=== PATIENT | male | born 1945 | race Two or more races ===

== ENCOUNTER 2017-06-25 08:36 | Day surgery (SDC) | payer MEDICARE, BC ==
[~2017-06-25] VITALS: Ht 167.6 cm; Wt 77.1 kg
--- NOTE | 2017-06-25 09:39 | NUR ---
[employer] PIPE MANUFACTURING SUPERVISOR OPENING NOTES PT ARRIVED TO UNIT IN STABLE CONDITION ACCOMPANIED BY HIS DAUGHTER. ORDERS NOTED BY DR. PINEDA. WILL INPUT STAT EKG ORDER, GET CONSENTS, AND PREPARE HIM FOR HIS PROCEDURES
--- NOTE | 2017-06-25 09:53 | NUR ---
SHIRT FINISHER NOTES PT TAKEN DOWN TO OR ACCOMPANIED BY OR STAFF.
--- NOTE | 2017-06-25 11:40 | NUR ---
EMPLOYMENT SERVICE SPECIALIST NOTES PT BACK FROM EGD AND COLONOSCOPY. ORDERS NOTED FROM DR. LIVINGSTON. WILL INPUT ORDERS AND BEGIN DISCHARGE ONCE PT IS STABLE.
[2017-06-25] MEDS ORDERED: IV LR 1000 ML 1,000 ML IV SCH (12:00)
--- NOTE | 2017-06-25 12:26 | NUR ---
SAMIRA NAJERA NOTES MRSA SWAB DONE ON RIGHT NARES. ALB CALLED FOR JUNIOR LINUX SYSTEMS ADMINISTRATOR Addendum: 06/25/17 at 1323 by MYRON EDDY RN *LAB
--- NOTE | 2017-06-25 13:23 | NUR ---
IMMIGRATION INSPECTORACCOUNTANT PROPERTY NOTES PT WAS DISCHARGED FROM UNIT IN STABLE CONDITION. VITAL SIGNS WNL. ALL NEEDS WERE MET DURING SHIFT AND ORDERS CARRIED OUT ACCORDINGLY. PT REMINDED TO FOLLOW UP WITH DR. LIVINGSTON IN 1 WEEK FOR RESULTS. ALL DISCHARGE INSTRUCTIONS DISCUSSED IN FULL CONTEXT WITH PT AND HIS DAUGHTER. PT VERBALIZED UNDERSTANDING OF DISCHARGE INSTRUCTIONS AND SIGNED ALL DISCHARGE PAPERWORK. ALL BELONGINGS WERE TAKEN BY THE PT. PT WAS ESCORTED OUT OF HOSPITAL AND LEFT VIA PRIVATE VEHICLE DRIVEN BY HIS DAUGHTER,.
== END 2017-06-25 22:59 | disposition home or self-care (01) ==
LOC: DS 08:36 → MED 08:38 → UNDOADMIN 08:38 → UNDODISIN 11:50 → DS 22:59
PROVIDERS: ATTEND Surgery
DX: D12.2 Benign neoplasm of ascending colon (principal); K63.5 Polyp of colon; K57.30 Diverticulosis of large intestine without perforation or abscess without bleeding; K29.50 Unspecified chronic gastritis without bleeding; K21.9 Gastro-esophageal reflux disease without esophagitis; K44.9 Diaphragmatic hernia without obstruction or gangrene; D64.9 Anemia, unspecified; E11.9 Type 2 diabetes mellitus without complications; J45.909 Unspecified asthma, uncomplicated; Z85.6 Personal history of leukemia; Z87.891 Personal history of nicotine dependence
CPT/HCPCS: 43239; 45385; 87081; 88305 ×2; 88313; 88342; 93005; J2704; J3490; J7120; Z7610

== ENCOUNTER 2017-07-04 19:24 | Inpatient (IN) | payer MEDICARE, BC ==
[~2017-07-04] VITALS: Ht 170.2 cm; Wt 86.2 kg
--- NOTE | 2017-07-04 19:30 | NUR ---
TO BED 4 AMBULATORY C/O NAUSEA ALL WEEK PER PT REPORT. PT AAOX4 NO ACUTE DISTRESS NOTED, RESP EVEN AND UNLABORED. PLACE PT ON CARDIAC MONITORING, CONTINUOUS POX. PENDING ER MD STUBBS.
--- NOTE | 2017-07-04 19:35 | NUR ---
PERLITA MERA AT BEDSIDE TO EVELYNE PARRA.
[2017-07-04] MEDS ORDERED: FAMOTIDINE/PF INJ 20 MG/2 ML VIAL IV ONE ×2 (19:50→20:00)
[2017-07-04] MEDS ORDERED: ONDANSETRON HCL/PF 4 MG/2 ML VIAL ONE (19:50)
--- NOTE | 2017-07-04 19:50 | NUR ---
RN AT BEDSIDE TO MEDICATE PT.
[2017-07-04] MEDS ORDERED: ONDANSETRON HCL/PF 4 MG/2 ML VIAL IVP ONE (20:00)
--- NOTE | 2017-07-04 20:08 | NUR ---
PT BACK FROM RADIOLOGY. PENDING CT ABD/PELVIS RESULT.
[2017-07-04 20:14] LABS: APPEARANCE,URINE CLEAR (CLEAR); BILIRUBIN,URINE NEGATIVE (NEGATIVE); BLOOD, URINE NEGATIVE Ery/uL (NEGATIVE); COLOR,URINE YELLOW (YELLOW); KETONES,URINE NEGATIVE (NEGATIVE); LEUKOCYTE ESTERASE ,URINE NEGATIVE (NEGATIVE); NITRITE, URINE NEGATIVE (NEGATIVE); PH,URINE 5.5 (5.0-8.0); PROTEIN,URINE TRACE mg/dl (NEGATIVE); UGLUCOSE 3+ mg/dL (NEGATIVE)
[2017-07-04 20:18] LABS: INR 1.07 (0.87-1.13); PROTHROMBIN TIME 11.1 SECS (9.5-12.7)
[2017-07-04 20:19] LABS: ALANINE AMINOTRANSFERASE 13 U/L (12-78); ALBUMIN 2.6 g/dL (3.4-5.0); ALKALINE PHOSPHATASE 195 U/L (46-116); ASPARTATE AMINOTRANSFERASE 22 U/L (15-37); BILIRUBIN,DIRECT 0.2 mg/dL (0.0-0.2); CALCIUM, SERUM 8.8 mg/dL (8.5-10.1); CARBON DIOXIDE 25 mmol/L (21-32); CHLORIDE 99 mmol/L (98-107); CREATININE 1.1 mg/dL (0.6-1.3); LIPASE 261 U/L (73-393); POTASSIUM 4.3 mmol/L (3.5-5.1); SODIUM SERUM 134 mmol/L (136-145); TOTAL PROTEIN, SERUM 6.5 g/dL (6.4-8.2); UREA NITROGEN, BLOOD 18 mg/dL (7-18)
[2017-07-04 20:20] LABS: TROPONIN I 0.039 ng/mL (0.00-0.056)
[2017-07-04 20:27] LABS: BACTERIA,URINE 1+ /HPF (None Seen); RBC,URINE 0-2 /HPF (0-2); SQUAMOUS EPITHELIAL CELL,UR 0-2 /HPF (None Seen); WBC,URINE 0-2 /HPF (0-3)
[2017-07-04 20:28] LABS: MUCUS,URINE Rare /LPF (None Seen)
[2017-07-04 20:36] LABS: BILIRUBIN,TOTAL 0.4 mg/dL (0.2-1.0)
[2017-07-04 20:41] LABS: GLUCOSE 422 mg/dL (74-106)
[2017-07-04 20:42] LABS: BASOPHILS # (AUTO) 0.3 /CMM (0.0-0.2); BASOPHILS % (AUTO) 1.1 % (0.0-2.0); EOSINOPHILS # (AUTO) 0.1 /CMM (0.0-0.7); EOSINOPHILS % (AUTO) 0.5 % (0.0-6.0); LYMPHOCYTES # (AUTO) 5.2 /CMM (0.8-4.8); LYMPHOCYTES % (AUTO) 20.9 % (20.0-44.0); MEAN CORPUSCULAR HEMOGLOBIN 31 PG (26.0-33.0); MEAN CORPUSCULAR HGB CONC 33 g/dl (31.0-36.0); MEAN CORPUSCULAR VOLUME 92 fL (80-96); MONOCYTES # (AUTO) 13.9 /CMM (0.1-1.30); MONOCYTES % (AUTO) 55.7 % (2.0-12.0); NEUTROPHILS # (AUTO) 5.4 /CMM (1.8-8.9); NEUTROPHILS % (AUTO) 21.8 % (43.0-81.0); RDW COEFFICIENT OF VARIATION 15.7 (11.5-15.0); WHITE BLOOD COUNT (AUTO) 24.9 K/uL (4.3-11.0)
[2017-07-04 20:52] LABS: RED BLOOD CELL COUNT(AUTO) 1.91 MIL/uL (4.5-6.0)
[2017-07-04 20:54] LABS: HEMATOCRIT 18 % (39-51); HEMOGLOBIN 5.8 g/dL (13.5-17.5)
[2017-07-04] MEDS ORDERED: PANTOPRAZOLE 80 MG in IV NS 0.9% 500 ML IV ONE (21:00)
[2017-07-04] MEDS ORDERED: OCTREOTIDE 50 MCG/ML AMPUL SQ ONE (21:00)
[2017-07-04] MEDS ORDERED: PANTOPRAZOLE 40 MG VIAL ONE (21:03)
[2017-07-04] MEDS ORDERED: OCTREOTIDE 100 MCG/ML VIAL ONE (21:03)
--- NOTE | 2017-07-04 21:04 | NUR ---
ER MD AT BEDSIDE TALKING TO PT AND PT FAMILY MEMBERS REGARDING LAB RESULTS AND HOSPITAL ADMISSION.
--- NOTE | 2017-07-04 21:26 | NUR ---
CALLED DR PINEDA, TRANSFERRED CALL TO DR MCINTYRE
--- NOTE | 2017-07-04 21:26 | NUR ---
PERLITA MERA SPOKE TO DR. PINEDA REGARDING PT.
[2017-07-04] MEDS ORDERED: INSULIN REGULAR, HUMAN 100 UNIT/ML 10 ML VIAL SQ ONE (21:30)
--- NOTE | 2017-07-04 21:30 | NUR ---
PAGED DR SMITH FOR PANEL ADMISSION
[2017-07-04 21:38] LABS: PLATELET COUNT (AUTO) 159 /CMM (150-450)
[2017-07-04] MEDS ORDERED: INSULIN REGULAR, HUMAN 100 UNIT/ML 10 ML VIAL ONE (21:39)
[2017-07-04 21:43] LABS: BAND % (MANUAL) 4 % (0.0-5.0); BLASTS, MANUAL % 2 % (0-0); LYMPHOCYTES % (MANUAL) 69 % (16-48); MONOCYTES % (MANUAL) 2 % (0-11.0); NEUTROPHILS % (MANUAL) 22 (42-76); REACTIVE LYMPHOCYTES 1 % (0-0)
--- NOTE | 2017-07-04 21:46 | NUR ---
REPORT CALLED TO TELE 1 DANIA DE LA CRUZ. WILL TRANSPORT PT VIA ACLS PROTOCOL.
--- NOTE | 2017-07-04 21:53 | NUR ---
ER SPOKE TO YOLANDA CODY REGARDING PT ADMISSION
[2017-07-04] MEDS ORDERED: MAGNESIUM HYDROXIDE 30 ML UDC PO PRN (22:00)
[2017-07-04] MEDS ORDERED: MAG HYDROX/AL HYDROX/SIMETH 30 ML UDC PO PRN (22:00)
[2017-07-04] MEDS ORDERED: Z GUARD REMEDY 2 OZ OINT TP PRN (22:00)
[2017-07-04] MEDS ORDERED: ONDANSETRON HCL/PF 4 MG/2 ML VIAL IVP PRN (22:00)
[2017-07-04] MEDS ORDERED: ZOLPIDEM TARTRATE 5 MG TABLET PO PRN (22:00)
[2017-07-04 22:30] VITALS: BP 107/65
[2017-07-04] MEDS: BLOOD SUGAR DIAGNOSTIC 1 EACH STRIP VI SCH (22:42)
--- NOTE | 2017-07-04 22:45 | NUR ---
RN:TELE: PT RECEIVED FROM ED C/C NAUSEA; H/H REVEALING SEVERE ANEMIA. PT WITHOUT ANY ACTIVE BLEEDING AT THIS TIME. PER PT AND HIS FAMILY, HE HAS NOT HAD ANY MELENA OR COFFEE GROUND EMESIS DIRECTOR OF ONLINE MERCHANDISING. UPON ARRIVAL TO THE UNIT PT BLOOD GLUCOSE REMAINS ELEVATED AT 384, DESPITE RECEIVING 10 UNITS OF REGULAR INSULIN IN ED. DR SMITH WHO WAS AT THE BEDSIDE ASSESSING PT, WAS NOTIFIED REGARDING HYPERGLYCEMIA AND ORDERED MODERATE SS WITH REGULAR INSULIN AC AND HS. PT GIVEN REGULAR INSULIN 10 UNITS SQ PER SS. PER DR LUIS MISHRA TO D/C PROTONIX GTT ORDERED BY ED MD AND TO TX 2 UNITS PRBC PREVIOUSLY ORDERED. D/W FAMILY REGARDING PLAN TO TX BLOOD, PT IS AGREEABLE TO CURRENT TREATMENT PLAN. NO CURRENT PLAN FOR PROCEDURE AT THIS TIME, CONSULTS WILL EVAL PT IN AM. PER DANICA SNOW TO START CLEAR LIQUIDS. 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 PT ALSO ADMITS TO HAVING A RECENT COLONOSCOPY AT THIS FACILITY. WILL HAVE DAYSHIFT F/U WITH POC. ALL BELONGINGS ASIDE FROM PT CELLPHONE SENT HOME WITH DAUGHTER. VSS. WILL CONTINUE TO MONITOR CLOSELY.
[2017-07-04] MEDS: *INSULIN REGULAR(HUMULIN R)HUM 100 UNIT/ML VIAL SQ PRN (22:52)
[2017-07-04] MEDS ORDERED: DEXTROSE 50%-WATER 50 ML DISP.SYRIN IV PRN (23:00)
[2017-07-04 23:04] VITALS: BP 114/76
[2017-07-04 23:19] VITALS: BP 116/58
[2017-07-05] VITALS (14 sets, daily range): BP systolic 105–128; BP diastolic 46–91
[2017-07-05 00:06] LABS: RETICULOCYTE COUNT 2.4 % (0.6-2.5)
[2017-07-05 00:52] LABS: THYROID STIMULATING HORMONE 1.912 uIU/mL (0.358-3.74)
--- NOTE | 2017-07-05 01:36 | NUR ---
RN:TELE: FIRST UNIT OF PRBC TX. NO REACTION NOTED. PT PLACED ON 2L NC TO ASSIST WITH MILDLY LABORED BREATHING WITH ACTIVITY. PT ASSISTED TO BSC, HE DECLINED THE URINAL. PT WAS ABLE TO VOID BUT UNABLE TO COLLECT SPECIMEN WAS FLUSHED IN THE TOILET. NO ACUTE DISTRESS NOTED. VSS. FALL PRECAUTIONS IN PLACE.
[2017-07-05] MEDS ORDERED: ACETAMINOPHEN 325 MG TABLET ONE (05:04)
[2017-07-05] MEDS: ACETAMINOPHEN 325 MG TABLET PO PRN ×2 (05:05→20:38)
--- NOTE | 2017-07-05 05:45 | NUR ---
RN:TELE: 2ND UNIT OF PRBC COMPLETED. PT TOLERATED TX WELL. PT ATTEMPTED TO USE URINAL BUT ACCIDENTALLY SPILLED URINE ON SHEETS AND UNDERWEAR. UNABLE TO MEASURE U/O. PT AGREED TO THROW AWAY UNDERWEAR. PARTIAL BED BATH PERFORMED. PT REQUESTED BLOOD GLUCOSE TO BE CHECKED AND WAS 165, NO COVERAGE GIVEN AT THIS TIME AM TRAYS NOT ON UNIT. PT COMPLAINING OF MILD GARCIAS, D/W PT DIFFERENT PAIN MANAGEMENT/ MEDICATION OPTIONS FOR GARCIAS. PT AGREED FOR TYLENOL. SIPS OF WATER OFFERED TO PT. PT NOW RESTING COMFORTABLY. VSS. WILL ENDORSE CARE TO ONCOMING SHIFT. CBC WILL BE DRAWN IN 45 MINS BLOOD TX JUST FINISHED.
--- NOTE | 2017-07-05 07:00 | NUR ---
initial rn note received pt in bed, awake, a/o x4, able to make needs known, able to follow commands, pt is able to move all extremities, pt is on 2lnc, sating well, no s/s of resp.distress or sob noted at this time, pt is on tele monitor showing st in 100's, no /co of chest pain or discomfort at this time, pt is ambulatory, uses bathroom, pt has rac #16g, sl, lac #18g, sl, c/d/i/patent, flushing well. no s/s of infection/ infiltration noted at this time, all safety measures in place at all times, call light within easy reach, will monitor pt closely for changes
[2017-07-05 07:13] LABS: BASOPHILS # (AUTO) 0.2 /CMM (0.0-0.2); BASOPHILS % (AUTO) 0.8 % (0.0-2.0); EOSINOPHILS # (AUTO) 0.1 /CMM (0.0-0.7); EOSINOPHILS % (AUTO) 0.3 % (0.0-6.0); HEMATOCRIT 21 % (39-51); HEMOGLOBIN 7.1 g/dL (13.5-17.5); LYMPHOCYTES # (AUTO) 6.2 /CMM (0.8-4.8); LYMPHOCYTES % (AUTO) 26.8 % (20.0-44.0); MEAN CORPUSCULAR HEMOGLOBIN 30 PG (26.0-33.0); MEAN CORPUSCULAR HGB CONC 34 g/dl (31.0-36.0); MEAN CORPUSCULAR VOLUME 90 fL (80-96); MONOCYTES # (AUTO) 12.1 /CMM (0.1-1.30); MONOCYTES % (AUTO) 52.5 % (2.0-12.0); NEUTROPHILS # (AUTO) 4.5 /CMM (1.8-8.9); NEUTROPHILS % (AUTO) 19.6 % (43.0-81.0); PLATELET COUNT (AUTO) 129 /CMM (150-450); RED BLOOD CELL COUNT(AUTO) 2.35 MIL/uL (4.5-6.0); WHITE BLOOD COUNT (AUTO) 23.1 K/uL (4.3-11.0)
[2017-07-05 07:40] LABS: CALCIUM, SERUM 8.1 mg/dL (8.5-10.1); CARBON DIOXIDE 23 mmol/L (21-32); CHLORIDE 101 mmol/L (98-107); CREATININE 1.1 mg/dL (0.6-1.3); GLUCOSE 170 mg/dL (74-106); MAGNESIUM 1.6 mg/dL (1.8-2.4); PHOSPHORUS 3.6 mg/dL (2.5-4.9); POTASSIUM 4.1 mmol/L (3.5-5.1); SODIUM SERUM 135 mmol/L (136-145); UREA NITROGEN, BLOOD 16 mg/dL (7-18)
[2017-07-05] MEDS: BLOOD SUGAR DIAGNOSTIC 1 EACH STRIP VI SCH ×4 (08:33→22:07)
[2017-07-05] MEDS: PANTOPRAZOLE 40 MG VIAL IV SCH ×2 (08:34→20:38)
[2017-07-05] MEDS: INSULIN REGULAR, HUMAN 100 UNIT/ML 3 ML VIAL SQ PRN ×3 (08:34→17:11)
--- NOTE | 2017-07-05 10:09 | NUR ---
VISHNU NOTE DR. AG MADE ROUND, AWARE OF ALL LABS AND RESULTS, FAMILY AT BEDSIDE, ALL QUESTIONS AND CONCERNS ANSWERED.
[2017-07-05] MEDS ORDERED: RANO500T3 PO (10:23)
[2017-07-05] MEDS ORDERED: IMAT400T7 PO (10:23)
[2017-07-05] MEDS ORDERED: FLUT1DIS3 IH (10:23)
[2017-07-05] MEDS ORDERED: ALLO300T2 PO (10:23)
[2017-07-05] MEDS: Magnesium 1GM/D5W 100ML PREMIX 100 ML IV SCH ×2 (11:12→11:54)
--- NOTE | 2017-07-05 12:00 | NUR ---
rn note 2g magnesium replaced
--- NOTE | 2017-07-05 12:45 | NUR ---
RN NOTE DR. PEÑA MADE ROUNDS, ALL NEW ORDERS ACK AND WILL BE CARRIED OUT ORDERED 2 UNITS OF PRBC, CONSENT FOR BONE BIOPSY
[2017-07-05 12:47] LABS: BAND % (MANUAL) 1 % (0.0-5.0); BLASTS, MANUAL % 5 % (0-0); LYMPHOCYTES % (MANUAL) 64 % (16-48); MONOCYTES % (MANUAL) 4 % (0-11.0); MYELOCYTES % 1 % (0-0); NEUTROPHILS % (MANUAL) 16 (42-76); REACTIVE LYMPHOCYTES 9 % (0-0)
[2017-07-05] MEDS ORDERED: FUROSEMIDE 20 MG/2 ML VIAL IV PRN (13:00)
[2017-07-05] MEDS ORDERED: LIDOCAINE HCL/PF 1% 30 ML SDV IJ ONE (13:30)
--- NOTE | 2017-07-05 17:30 | NUR ---
rn note called blood bank to follow up on blood order, order received, working on it.
--- NOTE | 2017-07-05 17:49 | NUR ---
RN NOTE STOOL OB COLLECTED AND SENT TO LAB
--- NOTE | 2017-07-05 17:49 | NUR ---
RN NOTE CONSENT FOR BMBX GIVEN AND SIGNED, CONSENT IN CHART
--- NOTE | 2017-07-05 18:21 | NUR ---
rn closing note pt was kept clean and dry, all orders carried out, all medications given, report will be given to pm rn for [place]
--- NOTE | 2017-07-05 19:30 | NUR ---
MS RN INITIAL NOTE PT RECEIVED SLEEPING IN BED. A/O X4 AND ABLE TO MAKE SOME NEEDS KNOWN. PUT ON 2L OF O2 D/T SATURATING 91% ROOM AND NOTED WITH SOB. ENCOURAGED PT TO KEEP OXYGEN ON. ON CLEAR LIQUID DIET AT THIS TIME. IV RAC #16 AND LAC #18 BOTH CLEAN, PATENT AND FLUSHING WELL. BED IN LOWEST POSITION AND LOCKED IN PLACE. CALL LIGHT WITHIN REACH. WILL CONTINUE TO MONITOR.
[2017-07-05] MEDS: *INSULIN REGULAR(HUMULIN R)HUM 100 UNIT/ML VIAL SQ PRN (22:14)
[2017-07-06] VITALS (13 sets, daily range): BP systolic 108–138; BP diastolic 50–76
--- NOTE | 2017-07-06 | NUR ---
MS NOTE STARTED 1ST UNIT OF PRBC. VITAL SIGNS WNL, AFEBRILE AND NO C/O PAIN OR SOB AT THIS TIME.
--- NOTE | 2017-07-06 04:35 | NUR ---
MS NOTE STARTED SECOND UNIT OF PRBC. PT AFEBRILE AND NO C/O SOB AT THIS TIME. WILL CONTINUE TO MONITOR.
--- NOTE | 2017-07-06 07:44 | NUR ---
MS DANIA INITIAL NOTE PT RECEIVED SLEEPING IN BED. A/O X4 AND ABLE TO MAKE SOME NEEDS KNOWN. PUT ON 2L OF O2 NO SOB. ENCOURAGED PT TO KEEP OXYGEN ON. ON CLEAR LIQUID DIET AT THIS TIME. IV RAC #16 AND LAC #18 BOTH CLEAN, PATENT AND FLUSHING WELL. BED IN LOWEST POSITION AND LOCKED IN PLACE. CALL LIGHT WITHIN REACH. WILL CONTINUE TO MONITOR.PLAN OF CARE DISCUSED WITH PATIENT , WILL CONT TO MONITOR CLOSELY Addendum: 07/06/17 at 1024 by MAURI HARP RN [id number] BLOOD TRANSFUSION, COMPLETED NO ADVERSE REACTION NOTED , WILL CONT TO MONITOR CLOSELY
--- NOTE | 2017-07-06 07:50 | NUR ---
MS RN CLOSING NOTE PT REMAINED STABLE DURING SHIFT. SECOND UNIT OF BLOOD HAS ENDED. VITAL SIGNS WNL AND AFEBRILE 97.9 DEGREES. 2 UNITS OF BLOOD WELL TOLERATED WITHOUT ANY ADVERSE REACTIONS. ALL NEEDS ATTENDED TO PROMPTLY. ASSISTED TO THE RESTROOM NEEDED. MEDS GIVEN ORDERED. CALL LIGHT WITHIN REACH AT ALL TIMES. WILL ENDORSE TO NEXT SHIFT FOR CONTINUITY OF CARE.
[2017-07-06] MEDS: *INSULIN REGULAR(HUMULIN R)HUM 100 UNIT/ML VIAL SQ PRN ×3 (08:29→21:26)
[2017-07-06] MEDS: BLOOD SUGAR DIAGNOSTIC 1 EACH STRIP VI SCH ×4 (08:32→21:22)
[2017-07-06] MEDS: PANTOPRAZOLE 40 MG VIAL IV SCH ×2 (08:35→21:13)
--- NOTE | 2017-07-06 08:40 | NUR ---
MS RN NOTE PATIENT C\O PAIN IN BOTH KNEES AND RT GROIN 6\10 SCALE , TYLENOL PO GIVEN ORDERED ,WILL CONT TO MONITOR CLOSELY
[2017-07-06] MEDS: ACETAMINOPHEN 325 MG TABLET PO PRN ×2 (08:47→17:47)
[2017-07-06 09:35] LABS: C-REACTIVE PROTEIN, QUANT 151.3 mg/L (0.0-4.9)
[2017-07-06 10:00] LABS: BASOPHILS # (AUTO) 0.2 /CMM (0.0-0.2); BASOPHILS % (AUTO) 0.6 % (0.0-2.0); EOSINOPHILS % (AUTO) 0.1 % (0.0-6.0); HEMATOCRIT 25 % (39-51); HEMOGLOBIN 8.5 g/dL (13.5-17.5); LYMPHOCYTES # (AUTO) 3.6 /CMM (0.8-4.8); LYMPHOCYTES % (AUTO) 14.3 % (20.0-44.0); MEAN CORPUSCULAR HEMOGLOBIN 29 PG (26.0-33.0); MEAN CORPUSCULAR HGB CONC 33 g/dl (31.0-36.0); MEAN CORPUSCULAR VOLUME 87 fL (80-96); MONOCYTES # (AUTO) 14.7 /CMM (0.1-1.30); MONOCYTES % (AUTO) 59.3 % (2.0-12.0); NEUTROPHILS # (AUTO) 6.4 /CMM (1.8-8.9); NEUTROPHILS % (AUTO) 25.7 % (43.0-81.0); PLATELET COUNT (AUTO) 104 /CMM (150-450); RDW COEFFICIENT OF VARIATION 17.8 (11.5-15.0); RED BLOOD CELL COUNT(AUTO) 2.92 MIL/uL (4.5-6.0); WHITE BLOOD COUNT (AUTO) 24.8 K/uL (4.3-11.0)
[2017-07-06 10:41] LABS: BAND % (MANUAL) 4 % (0.0-5.0); BLASTS, MANUAL % 10 % (0-0); LYMPHOCYTES % (MANUAL) 43 % (16-48); METAMYELOCYTES % 1 % (0-0); MONOCYTES % (MANUAL) 7 % (0-11.0); MYELOCYTES % 1 % (0-0); NEUTROPHILS % (MANUAL) 23 (42-76); REACTIVE LYMPHOCYTES 11 % (0-0)
[2017-07-06 12:15] LABS: BETA-2 MICROGLOBULIN, SERUM 2.8 mg/L (0.6-2.4)
[2017-07-06] MEDS: INSULIN REGULAR, HUMAN 100 UNIT/ML 3 ML VIAL SQ PRN (12:38)
--- NOTE | 2017-07-06 12:44 | NUR ---
MS RN NOTE DR SALMON AT BEDSIDE ONCOLOGIST .BONE BIOPSY DONE ,PRESSURE DRESSING APPLIED ON LT UPPER BUTTOCKS , SPECIMENS SENT TO LAB .FAMILY AT BEDSIDE Addendum: 07/06/17 at 1257 by MAURI HARP RN RN NOTE SEEN BY DR DESAI AWARE THAT BONE BIOPSY DONE AWARE MAG 1.6N AND DR HUERTA AWARE THAT HG 8.5 TODAY
[2017-07-06 13:19] LABS: CARCINOEMBRYONIC AG (CEA) 2.7 ng/mL (0.0-4.7)
--- NOTE | 2017-07-06 13:29 | NUR ---
MS RN NOTE NO BLEEDING NOTED ON S\P SITE BONE MARROW BIOPSY
[2017-07-06] MEDS ORDERED: MAGNESIUM OXIDE 400 MG TABLET PO ONE (14:00)
--- NOTE | 2017-07-06 14:09 | NUR ---
MS RN NOTE NEW HL ON LT HAND MADAY 22 INSERTED WITH GOOD BLOOD RETURN ASSISTED TO BR, ABLE TO URINATE WELL, KEEP CLEAN DRY ,WILL F\U
--- NOTE | 2017-07-06 16:43 | NUR ---
MS RN NOTE AMBULATED WITH FAMILY WELL ON HALLWAY ,NOT IN ACUTE DISTRESS, ALL NEEDS ATTENDED ,WILL CONT TO MONITOR CLOSELY
--- NOTE | 2017-07-06 17:45 | NUR ---
TEMPLATE INSPECTOR NOTE FEELS WEEK , RECHECKED T 99.8 ,C\O GENERAL PAIN ON BODY , TYLENOL PO GIVEN , BP 108/65 HR 108 SAT 95% ON 2L NC O2 , ALL NEEDS ATTENDED , KEEP HOB ELEVATED FOR COMFORT , WILL MONITOR CLOSELY
--- NOTE | 2017-07-06 18:36 | NUR ---
MS RN NOTE T NOW 98.9, KEEP CLEAN DRY , NO SOB NOTED, WILL CONT TO MONITOR CLOSELY
--- NOTE | 2017-07-06 19:45 | NUR ---
MS RN INITIAL NOTE RECEIVED PT AWAKE AND RESTING IN BED. A/O X4 AND ABLE TO MAKE NEEDS KNOWN. ON 2L OF O2 VIA NC AND SATURATING 95%. BREATHING IS EVEN AND UNLABORED. NO SOB OR C/O PAIN NOTED AT THIS TIME. IV L HAND #22 PATENT, CLEAN AND FLUSHING WELL. CALL LIGHT WITHIN REACH. WILL CONTINUE TO MONITOR.
[2017-07-06] MEDS: HYDROCODONE/APAP 5/325MG 1 EACH TABLET PO PRN (21:38)
[2017-07-07 04:00] VITALS: BP 137/65
--- NOTE | 2017-07-07 07:20 | NUR ---
MS RN CLOSING NOTE PT REMAINED STABLE DURING SHIFT. NO SOB NOTED. ALL NEEDS ATTENDED TO AND MET PROMPTLY. KEPT CLEAN AND DRY. CALL LIGHT WITHIN REACH. WILL ENDORSE TO NEXT SHIFT.
--- NOTE | 2017-07-07 07:30 | NUR ---
MS RN AM NOTE RECEIVED PT AWAKE AND RESTING IN BED. A/O X4 AND ABLE TO MAKE NEEDS KNOWN. ON 2L OF O2 VIA NC ON AND OFF, BREATHING IS EVEN AND UNLABORED. NO SOB OR C/O PAIN NOTED AT THIS TIME. IV L HAND #22 FLUSHES WELL, SITE CLEAR,CLEAR LIQUID, BRP, CALL LIGHT WITHIN REACH. WILL CONTINUE TO MONITOR.
[2017-07-07 08:00] VITALS: BP 130/64
[2017-07-07 08:02] LABS: BASOPHILS # (AUTO) 0.1 /CMM (0.0-0.2); BASOPHILS % (AUTO) 0.3 % (0.0-2.0); HEMATOCRIT 26 % (39-51); HEMOGLOBIN 8.9 g/dL (13.5-17.5); LYMPHOCYTES # (AUTO) 8.6 /CMM (0.8-4.8); LYMPHOCYTES % (AUTO) 27.6 % (20.0-44.0); MEAN CORPUSCULAR HEMOGLOBIN 30 PG (26.0-33.0); MEAN CORPUSCULAR HGB CONC 34 g/dl (31.0-36.0); MEAN CORPUSCULAR VOLUME 87 fL (80-96); MONOCYTES # (AUTO) 15.2 /CMM (0.1-1.30); MONOCYTES % (AUTO) 49.1 % (2.0-12.0); NEUTROPHILS # (AUTO) 7.1 /CMM (1.8-8.9); PLATELET COUNT (AUTO) 106 /CMM (150-450); RED BLOOD CELL COUNT(AUTO) 2.97 MIL/uL (4.5-6.0)
[2017-07-07] MEDS: BLOOD SUGAR DIAGNOSTIC 1 EACH STRIP VI SCH ×4 (08:09→21:25)
[2017-07-07] MEDS: INSULIN REGULAR, HUMAN 100 UNIT/ML 3 ML VIAL SQ PRN ×3 (08:13→16:40)
[2017-07-07 08:20] LABS: CALCIUM, SERUM 8.5 mg/dL (8.5-10.1); CARBON DIOXIDE 22 mmol/L (21-32); CHLORIDE 100 mmol/L (98-107); CREATININE 0.9 mg/dL (0.6-1.3); GLUCOSE 202 mg/dL (74-106); POTASSIUM 4.3 mmol/L (3.5-5.1); SODIUM SERUM 136 mmol/L (136-145); UREA NITROGEN, BLOOD 11 mg/dL (7-18)
[2017-07-07] MEDS: PANTOPRAZOLE 40 MG VIAL IV SCH ×2 (08:53→21:27)
--- NOTE | 2017-07-07 09:30 | NUR ---
MS RN NOTES ADMINISTERED DUE MEDS. ACCUCHECK [ 808] = 231 MG/DL. ADMINISTERED 6U HUM R PER SLIDING SCALE.
[2017-07-07 10:38] LABS: BAND % (MANUAL) 4 % (0.0-5.0); BLASTS, MANUAL % 10 % (0-0); LYMPHOCYTES % (MANUAL) 34 % (16-48); MONOCYTES % (MANUAL) 3 % (0-11.0); NEUTROPHILS % (MANUAL) 28 (42-76); REACTIVE LYMPHOCYTES 21 % (0-0)
--- NOTE | 2017-07-07 11:13 | NUR ---
MS RN NOTES ACCUCHECK. BS = 249 MG/DL. ADMINISTERED 6U HUM R PER SLIDING SCALE.
[2017-07-07 12:52] LABS: BASOPHILS # (AUTO) 0.2 /CMM (0.0-0.2); BASOPHILS % (AUTO) 0.7 % (0.0-2.0); EOSINOPHILS % (AUTO) 0.1 % (0.0-6.0); HEMATOCRIT 26 % (39-51); HEMOGLOBIN 8.6 g/dL (13.5-17.5); LYMPHOCYTES # (AUTO) 6.1 /CMM (0.8-4.8); LYMPHOCYTES % (AUTO) 18.6 % (20.0-44.0); MEAN CORPUSCULAR HEMOGLOBIN 29 PG (26.0-33.0); MEAN CORPUSCULAR HGB CONC 33 g/dl (31.0-36.0); MEAN CORPUSCULAR VOLUME 88 fL (80-96); MONOCYTES # (AUTO) 17.3 /CMM (0.1-1.30); MONOCYTES % (AUTO) 52.6 % (2.0-12.0); NEUTROPHILS # (AUTO) 9.2 /CMM (1.8-8.9); PLATELET COUNT (AUTO) 110 /CMM (150-450); RDW COEFFICIENT OF VARIATION 18.2 (11.5-15.0); RED BLOOD CELL COUNT(AUTO) 2.94 MIL/uL (4.5-6.0)
[2017-07-07 12:55] LABS: WHITE BLOOD COUNT (AUTO) 32.9 K/uL (4.3-11.0)
[2017-07-07 13:17] LABS: BAND % (MANUAL) 6 % (0.0-5.0); BLASTS, MANUAL % 11 % (0-0); LYMPHOCYTES % (MANUAL) 40 % (16-48); MONOCYTES % (MANUAL) 9 % (0-11.0); NEUTROPHILS % (MANUAL) 6 (42-76); REACTIVE LYMPHOCYTES 28 % (0-0)
--- NOTE | 2017-07-07 13:25 | NUR ---
MS RN NOTES DR. DESAI NOTIFIED ABOUT REPEAT CBC - WBC COUNT OF 32.9 COMPARED TO THIS MORNING AT 31. PER DR. DESAI, JUST MONITOR AND WAIT FOR BM BIOPSY RESULT.
[2017-07-07 16:00] VITALS: BP_SYST 116; BP_SYST 137; BP_DIAS 60; BP_DIAS 65
[2017-07-07 16:25] VITALS: BP 116/60
--- NOTE | 2017-07-07 16:36 | NUR ---
MS RN NOTES ACCUCHECK. BS = 172 MG/DL. ADMINISTERED 3U HUM R PER SLIDING SCALE.
--- NOTE | 2017-07-07 18:15 | NUR ---
MS RN CLOSING NOTE PT RESTING, IN BED. A/O X4 AND ABLE TO MAKE NEEDS KNOWN. ON 2L OF O2 VIA NC ON AND OFF, BREATHING IS EVEN AND UNLABORED. NO SOB OR C/O PAIN NOTED AT THIS TIME. IV L HAND #22 FLUSHES WELL, SITE CLEAR,CLEAR LIQUID, BRP, ALL NEEDS MET, NO OTHER SIGNIFICANT CHANGE IN CONDITION. CALL LIGHT WITHIN REACH. WILL ENDORSE TO NEXT SHIFT FOR CHRISTIAN.
[2017-07-07] MEDS: ACETAMINOPHEN 325 MG TABLET PO PRN (19:48)
[2017-07-07 20:00] VITALS: BP 128/83
[2017-07-07] MEDS: HYDROCODONE/APAP 5/325MG 1 EACH TABLET PO PRN (21:19)
[2017-07-07] MEDS: *INSULIN REGULAR(HUMULIN R)HUM 100 UNIT/ML VIAL SQ PRN (21:25)
[2017-07-08 04:00] VITALS: BP 120/62
[2017-07-08 07:50] LABS: BASOPHILS # (AUTO) 0.2 /CMM (0.0-0.2); BASOPHILS % (AUTO) 0.7 % (0.0-2.0); EOSINOPHILS % (AUTO) 0.1 % (0.0-6.0); HEMATOCRIT 25 % (39-51); LYMPHOCYTES # (AUTO) 5.5 /CMM (0.8-4.8); LYMPHOCYTES % (AUTO) 17.2 % (20.0-44.0); MEAN CORPUSCULAR HEMOGLOBIN 29 PG (26.0-33.0); MEAN CORPUSCULAR HGB CONC 33 g/dl (31.0-36.0); MEAN CORPUSCULAR VOLUME 88 fL (80-96); MONOCYTES # (AUTO) 17.8 /CMM (0.1-1.30); MONOCYTES % (AUTO) 55.7 % (2.0-12.0); NEUTROPHILS # (AUTO) 8.4 /CMM (1.8-8.9); NEUTROPHILS % (AUTO) 26.3 % (43.0-81.0); PLATELET COUNT (AUTO) 89 /CMM (150-450); RDW COEFFICIENT OF VARIATION 17.6 (11.5-15.0)
[2017-07-08 07:58] LABS: WHITE BLOOD COUNT (AUTO) 31.9 K/uL (4.3-11.0)
[2017-07-08 08:00] VITALS: BP 131/71
--- NOTE | 2017-07-08 08:00 | NUR ---
MS RN NOTES, PATIENT IN BED RESTING COMFORTABLY, ON 2LPM VIA N/C NO SOB NOTES AT THIS TIME, WITH LEFT HAND HEPLOCK, INTACT AND PATENT, NO S/S OF INFECTION NOTED, BED LOCKED AND IN LOWEST POSITION, REFUSED TO PLACE DVT PUMPS BOTH LEGS, PLAN OF CARE WILL DISCUSS WITH PT, CALL LIGHT W/I REACH WILL CONTINUE TO MONITOR CLOSELY.
[2017-07-08 08:02] LABS: CALCIUM, SERUM 8.6 mg/dL (8.5-10.1); CARBON DIOXIDE 23 mmol/L (21-32); CHLORIDE 99 mmol/L (98-107); CREATININE 0.9 mg/dL (0.6-1.3); GLUCOSE 191 mg/dL (74-106); POTASSIUM 3.8 mmol/L (3.5-5.1); SODIUM SERUM 134 mmol/L (136-145); UREA NITROGEN, BLOOD 10 mg/dL (7-18)
[2017-07-08] MEDS: PANTOPRAZOLE 40 MG VIAL IV SCH ×2 (08:20→20:51)
[2017-07-08] MEDS: BLOOD SUGAR DIAGNOSTIC 1 EACH STRIP VI SCH ×4 (08:20→21:00)
[2017-07-08] MEDS: *INSULIN REGULAR(HUMULIN R)HUM 100 UNIT/ML VIAL SQ PRN (08:22)
[2017-07-08 09:54] LABS: BAND % (MANUAL) 2 % (0.0-5.0); BLASTS, MANUAL % 9 % (0-0); EOSINOPHILS % (MANUAL) 1 % (0-4); LYMPHOCYTES % (MANUAL) 58 % (16-48); MONOCYTES % (MANUAL) 6 % (0-11.0); NEUTROPHILS % (MANUAL) 17 (42-76); REACTIVE LYMPHOCYTES 7 % (0-0)
[2017-07-08] MEDS: INSULIN REGULAR, HUMAN 100 UNIT/ML 3 ML VIAL SQ PRN ×3 (11:58→21:01)
--- NOTE | 2017-07-08 12:00 | NUR ---
MS RN NOTE ALL NEEDS ATTENDED ,NOT IN ACUTE DISTRESS
[2017-07-08] MEDS: IMATINIB MESYLATE 400 MG PO SCH (13:17)
--- NOTE | 2017-07-08 15:00 | NUR ---
MS RN NOTE CONT ON O2 RESPIRATION UNLABORED, NOT IN DISTRESS
[2017-07-08 16:00] VITALS: BP 105/50
[2017-07-08 16:11] VITALS: BP 105/50
--- NOTE | 2017-07-08 18:23 | NUR ---
MS RN NOTE TRANSFERRED TO ROOM 116 BED 2
--- NOTE | 2017-07-08 18:38 | NUR ---
MS RN NOTES, PATIENT ON BED RESTING COMFORTABLY,FAMILY AT BEDSIDE, NO S/S OF ANY DISTRESS OR DISCONFORT, HE ATE 70% OF THE MEAL. WILL CONTINUE TO MONITOR CLOSELY.
--- NOTE | 2017-07-08 18:42 | NUR ---
MS RN NOTES, RECEIVE LAB RESULTS WITH WBC 31.9, MD NOTIFY, AND NNO GIVEN AT THIS TIME.
--- NOTE | 2017-07-08 19:26 | NUR ---
RN OPENING NOTE PT REMAINS IN NO ACUTE DISTRESS AT THIS TIME. A/O X4 SERBIAN SPEAKING WITH SOME LATVIAN BUT ABLE TO MAKE NEEDS KNOWN. BREATHING PATTERN IS NORMAL WITH ADEQUATE CHEST RISE/FALL ON 2L ON NC. PT HAS A LEFT HAND 22G HL. COMFORT AND SAFETY MEASURES TO BE ENSURED DURING THE SHIFT. WILL CONTINUE TO MONITOR FOR ANY CHANGES.
[2017-07-08 20:00] VITALS: BP 140/67
[2017-07-09] MEDS: ACETAMINOPHEN 325 MG TABLET PO PRN (01:29)
[2017-07-09 04:00] VITALS: BP 127/65
[2017-07-09 07:19] LABS: BASOPHILS % (AUTO) 0.1 % (0.0-2.0); EOSINOPHILS # (AUTO) 0.1 /CMM (0.0-0.7); EOSINOPHILS % (AUTO) 0.3 % (0.0-6.0); HEMATOCRIT 26 % (39-51); HEMOGLOBIN 8.5 g/dL (13.5-17.5); LYMPHOCYTES # (AUTO) 7.5 /CMM (0.8-4.8); LYMPHOCYTES % (AUTO) 19.5 % (20.0-44.0); MEAN CORPUSCULAR HEMOGLOBIN 29 PG (26.0-33.0); MEAN CORPUSCULAR HGB CONC 34 g/dl (31.0-36.0); MEAN CORPUSCULAR VOLUME 88 fL (80-96); MONOCYTES # (AUTO) 22.3 /CMM (0.1-1.30); MONOCYTES % (AUTO) 57.8 % (2.0-12.0); NEUTROPHILS # (AUTO) 8.6 /CMM (1.8-8.9); NEUTROPHILS % (AUTO) 22.3 % (43.0-81.0); PLATELET COUNT (AUTO) 82 /CMM (150-450); RDW COEFFICIENT OF VARIATION 17.8 (11.5-15.0)
--- NOTE | 2017-07-09 07:30 | NUR ---
RN NOTE RESTING IN BED. A+OX4. VERBALIZES NEEDS. DENIES PAIN. BREATHING WNL ON ROOM AIR. DISCUSSED PLAN OF CARE. L HAND IV WNL. CALL LIGHT IN REACH.
[2017-07-09 07:59] LABS: WHITE BLOOD COUNT (AUTO) 38.5 K/uL (4.3-11.0)
[2017-07-09 08:00] VITALS: BP_SYST 121; BP_SYST 179; BP_DIAS 64; BP_DIAS 71
[2017-07-09] MEDS: BLOOD SUGAR DIAGNOSTIC 1 EACH STRIP VI SCH (08:37)
[2017-07-09] MEDS: PANTOPRAZOLE 40 MG VIAL IV SCH (08:38)
[2017-07-09] MEDS: IMATINIB MESYLATE 400 MG PO SCH (08:38)
[2017-07-09 09:35] LABS: BAND % (MANUAL) 3 % (0.0-5.0); BLASTS, MANUAL % 6 % (0-0); LYMPHOCYTES % (MANUAL) 58 % (16-48); MONOCYTES % (MANUAL) 24 % (0-11.0); NEUTROPHILS % (MANUAL) 8 (42-76); REACTIVE LYMPHOCYTES 1 % (0-0)
--- NOTE | 2017-07-09 09:49 | NUR ---
CRITICAL VALUE WBC 38- HANG SALMON AWARE. PLAN TO TRANSFER TO [facility]. TAPE LIBRARIAN IS AWARE.
--- NOTE | 2017-07-09 11:00 | NUR ---
PATIENT LEFT AMA PATIENT DUE TO GO TO [facility] PER DR. MEDEROS AND DR. DESAI. BODY MAKE UP ARTIST IS AWARE, HOWEVER PENDING HOSPITAL BED. D/C PLANNING TIME UNKNOWN AT THIS TIME. INFORMED PATIENT AND FAMILY AT BED SIDE. THEY SAID THEY WANT HIM TO LEAVE IMMEDIATELY AGAINST MEDICAL ADVICE. FAMILY STATED THEY WILL BRING HIM TO THE ER AT [facility]. PATIENT'S SIGNED THE PAPERS FOR THE PATIENT. WITNESSED BY CHARGE NURSE. EDUCATED PATIENT AND FAMILY ON RISKS OF LEAVING AMA. THEY VERBALIZED UNDERSTANDING. DR. DESAI AT NURSES STATION MADE AWARE OF THIS. DR. DESAI SIGNED AMA PAPERS. L HAND IV REMOVED. PATIENT WAS PROVIDED WITH HOSPITAL SUMMARY PAPER WORK, EDUCATION AND WHEELED OUT SAFELY.
== END 2017-07-09 11:10 | disposition left against medical advice (07) | DRG 841 ==
LOC: ER 19:24 → TELE-TD 22:04 → TELE1 22:30 → MEDSG1 07-05 10:52
PROVIDERS: ADMIT Internal Medicine; ATTEND Internal Medicine
PROC: 30233N1 Transfusion of Nonautologous Red Blood Cells into Peripheral Vein, Percutaneous Approach (ICD-10-PCS; principal; 2017-07-05)
DX: C92.10 Chronic myeloid leukemia, BCR/ABL-positive, not having achieved remission (principal); K80.10 Calculus of gallbladder with chronic cholecystitis without obstruction; E87.0 Hyperosmolality and hypernatremia; E11.65 Type 2 diabetes mellitus with hyperglycemia; N28.1 Cyst of kidney, acquired; I25.10 Atherosclerotic heart disease of native coronary artery without angina pectoris; I11.9 Hypertensive heart disease without heart failure; E78.5 Hyperlipidemia, unspecified; I70.0 Atherosclerosis of aorta; J45.909 Unspecified asthma, uncomplicated; K21.9 Gastro-esophageal reflux disease without esophagitis; K44.9 Diaphragmatic hernia without obstruction or gangrene; K63.5 Polyp of colon; M43.17 Spondylolisthesis, lumbosacral region; Z87.442 Personal history of urinary calculi; Z95.5 Presence of coronary angioplasty implant and graft; Z98.890 Other specified postprocedural states; Z79.4 Long term (current) use of insulin; K57.30 Diverticulosis of large intestine without perforation or abscess without bleeding; D63.0 Anemia in neoplastic disease
CPT/HCPCS: 36415; 71010-TC; 80048-TC; 80076-TC; 81000-TC; 82232; 82272-TC; 82306; 82378; 82728-TC; 82746; 82962-TC; 83010; 83540-TC; 83605-TC; 83615-TC; 83690-TC; 83735-TC; 84100-TC; 84443-TC; 84484-TC; 84550-TC; 85025-TC; 85045-TC; 85652-TC; 85730-TC; 86140; 86850-TC; 86921-TC; 87040-TC; 87081-TC; 87086-TC; A6402; C9113; J1815; J1940; J2354; J2405; J3475; J3490; J7040; J7050; P9016-BL; Z7610